=== PATIENT | female | born 1980 | race Caucasian/White ===

== ENCOUNTER 2017-05-19 20:29 | Emergency (ER) | payer BC ==
[~2017-05-19] VITALS: Ht 162.6 cm; Wt 76.3 kg
[2017-05-19 21:13] LABS: HEMATOCRIT 40.1 % (36.0-46.0); HEMOGLOBIN 13.9 G/DL (11.9-15.5); MCH 30.6 PG (29.0-34.0); MCHC 34.7 G/DL (30.0-36.0); MCV 88.3 FL (83-99); PLATELET COUNT 195 K/uL (156-360); RBC DIS.WIDTH-SD 38.5 % (39-53); RED BLOOD COUNT 4.54 M/uL (3.80-5.20); WHITE BLOOD COUNT 4.6 K/uL (4.1-10.2)
[2017-05-19 21:16] LABS: APPEARANCE SL.HAZY ((CLEAR)); BILIRUBIN NEGATIVE; BLOOD MODERATE; COLOR YELLOW ((YELLOW)); GLUCOSE (STRIP) NEGATIVE; KETONES NEGATIVE; LEUKOCYTES SMALL; NITRITE NEGATIVE; PROTEIN (STRIP) NEGATIVE; SPECIFIC GRAVITY 1.021 (1.000-1.030); UROBILINOGEN 0.2 MG/DL (0.2-1.0)
[2017-05-19 21:23] LABS: BACTERIA NONE SEEN /HPF; EPITHELIAL CELLS 1+ /HPF; MUCUS TRACE /LPF; UCUL ADDED? NO; WHITE BLOOD CELLS 0-5 /HPF (0-5)
[2017-05-19 21:30] LABS: ALBUMIN 4.7 G/DL (3.2-4.8); CHLORIDE 102 MEQ/L (99-109); POTASSIUM 3.7 MEQ/L (3.7-5.4); SODIUM 139 MEQ/L (136-147); TOTAL BILIRUBIN 0.5 MG/DL (0.0-1.0)
[2017-05-19 21:36] LABS: ALKALINE PHOSPHATASE 74 IU/L (3-129); ALT (GPT) 24 IU/L (3-49); AST (GOT) 26 IU/L (2-34); CREATININE 0.7 MG/DL (0.6-1.3); GFR ESTIMATE (CALCULATED) > 59 mL/min/; GLUCOSE 82 mg/dL (70-99); TOTAL PROTEIN 7.5 G/DL (6.4-8.3); UREA NITROGEN (BUN) 8 mg/dL (9-23)
[2017-05-19] MEDS ORDERED: MIRALAX255 GM PO (23:55)
[2017-05-19] MEDS ORDERED: ZOFRAN ODT8 MG PO (23:58)
[2017-05-19] MEDS ORDERED: BENTYL20 MG PO (23:58)
[2017-05-20 00:30] VITALS: BP 108/69
== END 2017-05-20 00:32 | disposition home or self-care (01) ==
LOC: RME 20:29 → EME 20:29 → RME 05-20 00:32
DX: K59.00 Constipation, unspecified (principal); R10.84 Generalized abdominal pain; R11.0 Nausea; Z90.710 Acquired absence of both cervix and uterus; Z88.0 Allergy status to penicillin
CPT/HCPCS: 74177; 80053; 81003; 85027; 99281; 99285; J1885; J2405; J7030